=== PATIENT | male | born 1970 | race African-American/Black ===

== ENCOUNTER 2018-05-05 01:46 | Emergency (ER) | payer MEDICAID, OTHER ==
[~2018-05-05] VITALS: Ht 170.2 cm; Wt 62.0 kg
[2018-05-05 02:46] LABS: CLARITY URINE TURBID (CLEAR); COLOR URINE DARK YELLOW (YELLOW); KETONES URINE TRACE (NEGATIVE); LEUKOCYTE ESTERASE URINE 3+ (NEGATIVE); NITRITE URINE NEGATIVE (NEGATIVE); OCCULT BLOOD URINE 3+ (NEGATIVE); PH URINE 5.5 (4.5-8.0); PROTEIN URINE 1+ (NEGATIVE); SPECIFIC GRAVITY URINE 1.028 (1.005-1.030)
[2018-05-05 02:46] LABS: BASOPHILS % 1.3 % (0.0-2.0); EOSINOPHILS % 0.6 % (0.0-5.0); HEMATOCRIT. 37.1 % (42.0-52.0); HEMOGLOBIN. 12.3 g/dL (14.0-18.0); LYMPHOCYTES % 22.3 % (20.0-50.0); MEAN CORPUSCULAR HEMOGLOBIN 31.2 pg (28.0-32.0); MEAN PLATELET VOLUME 8.4 fl (7.4-10.4); MONOCYTES % 9.7 % (2.0-8.0); NEUTROPHILS % 66.1 % (40.0-76.0); PLATELET 165 x1000/uL (130-400); RED BLOOD CELL COUNT 3.95 mill/uL (4.7-6.1); RED CELL DISTRIBUTION WIDTH 14.7 % (11.6-14.6)
[2018-05-05 02:53] LABS: CHLORIDE 112 mEq/L (98-107)
[2018-05-05 02:54] LABS: PROTHROMBIN TIME 10.2 sec (9.1-11.1)
[2018-05-05 03:46] VITALS: BP 108/63
== END 2018-05-05 03:57 | disposition home or self-care (01) ==
LOC: ER 01:46
DX: N39.0 Urinary tract infection, site not specified (principal); N40.0 Benign prostatic hyperplasia without lower urinary tract symptoms; F17.200 Nicotine dependence, unspecified, uncomplicated
CPT/HCPCS: 36415; 87077; 99283

== ENCOUNTER 2019-02-05 16:05 | Emergency (ER) | payer OTHER ==
[~2019-02-05] VITALS: Ht 170.2 cm; Wt 64.0 kg
[2019-02-05 16:44] VITALS: BP 116/73
[2019-02-05] MEDS ORDERED: KETOROLAC 60MG/2ML VIAL IM ONE (16:45)
[2019-02-05] MEDS ORDERED: DIAZEPAM 5 MG TABLET PO ONE (17:45)
== END 2019-02-05 18:38 | disposition home or self-care (01) ==
LOC: ER 16:05
DX: M54.6 Pain in thoracic spine (principal); F07.89 Other personality and behavioral disorders due to known physiological condition; F12.10 Cannabis abuse, uncomplicated
CPT/HCPCS: 71045; 72070; 93005; 96372; 99283; J1885

== ENCOUNTER 2024-02-23 04:05 | Emergency (ER) | payer SELFPAY ==
[~2024-02-23] VITALS: Ht 170.2 cm; Wt 62.0 kg
[2024-02-23 04:27] VITALS: O2SAT 99
[2024-02-23 04:34] VITALS: BP 113/85; PULSE 64; TEMP 98; O2SAT 99
[2024-02-23] MEDS ORDERED: NAPR-1176 MT (04:56)
[2024-02-23] MEDS ORDERED: CYCL10TA21 MT (04:56)
[2024-02-23 05:26] VITALS: RESP 16
[2024-02-23] MEDS: KETOROLAC 30MG/ML VIAL IM ONE (05:26)
[2024-02-23] MEDS: CYCLOBENZAPRINE 10MG TABLET PO ONE (05:26)
== END 2024-02-23 05:27 | disposition home or self-care (01) ==
LOC: ER 04:05
DX: M54.50 Low back pain, unspecified (principal); F12.10 Cannabis abuse, uncomplicated
CPT/HCPCS: 96372; 99283; J1885; Z7610